=== PATIENT | male | born 2005 | race Hispanic/Latino ===

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

== ENCOUNTER 2023-09-10 19:15 | Emergency (ER) | payer OTHER | END 2023-09-10 21:42 | disposition home or self-care (01) | LOC: ERS 19:15 | DX: K92.1 Melena (principal) | CPT/HCPCS: 99283 ==